=== PATIENT | male | born 1945 | race Caucasian/White ===

== ENCOUNTER 2018-01-27 17:02 | Outpatient (CLI) | payer MEDICARE, OTHER ==
--- NOTE | 2018-01-28 09:18 | MRI ---
MRI RIGHT SHOULDER WITHOUT CONTRAST: Date: 01/27/18 HISTORY: Shoulder pain. No loss of motion. COMPARISON: None. FINDINGS: Biceps Tendon: There is moderate extra-articular biceps tenosynovitis. There is severe interarticular tendinosis wit h interstitial tearing. Glenoid Labrum: There is anterior inferior labral tearing. There is also posterior inferior labral tearing and perios teal thickening. The superior labrum is also torn. Rotator Cuff: Full thickness, full width tear of the supraspinatus tendon retracted from the footplate 2.5 cm. Ther e is also extension of tear into the infraspinatus tendon which has a partial width full thickness te ar anterior 1.0 cm fibers. There is also extensive interstitial undersurface fraying. Bones: There is mild retroversion of the glenoid approximately 10 degrees with hypertrophy of the posterior labrum. There are large erosions of the posterolateral humeral head. Type I acromion. Soft Tissues: Moderate subacromial/subdeltoid bursal effusion. Moderate synovitis. There is loss of some of the nor mal subcoracoid fat pad with synovitis of the rotator interval. Muscles: Even with the full thickness supraspinatus tendon tear, there is no significant atrophy of the supras pinatus muscle. IMPRESSION: 1. Full thickness, full width supraspinatus tendon tear from the footplate retracted to the mid margarita ral head. Retracted fibers are moderately tendinotic. Rotator cable is medial to the mid humeral head approximately 8.0 mm. 2. Mild retroversion of the glenoid with nearly circumferential labral tearing. 3. Full thickness tear of the anterior 1.0 cm fibers of infraspinatus tendon with extensive undersur face and interstitial fraying. 4. Large erosions of the greater tuberosity which may be sequelae of prior anterior dislocation or r esorptive from tendinosis and subchondral extension of fluid from interstitial tearing of the infrasp inatus tendon. 5. No significant muscle atrophy. 6. A few near full thickness cartilage fissures with subchondral cysts of the glenoid. A majority of the cartilage of the humeral head appears to be intact. 7. Moderate synovitis and joint effusion. 8. Rotator interval synovitis. POS: [facility]
== END 2018-01-27 17:03 | disposition home or self-care (01) ==
LOC: MRI 17:02
PROVIDERS: ATTEND Orthopaedic Surgery
DX: M25.511 Pain in right shoulder (principal); M75.101 Unspecified rotator cuff tear or rupture of right shoulder, not specified as traumatic; S43.401A Unspecified sprain of right shoulder joint, initial encounter; M65.811 Other synovitis and tenosynovitis, right shoulder

== ENCOUNTER 2022-11-04 18:17 | Inpatient (IN) | payer MEDICARE, OTHER ==
[2022-11-04] MEDS ORDERED: Boostrix 0.5 ML (Tdap) VIAL (>/=7 yrs of age) ONE ×2 (19:14→19:20)
[2022-11-04] MEDS ORDERED: Lidocaine 1% PF 5 ML VIAL ONE (19:14)
[2022-11-04] MEDS ORDERED: Bacitracin 1 PK ONE (19:14)
[2022-11-04] MEDS ORDERED: TETANUS, DIPHTHERIA TOX,ADULT (TDVAX) 0.5 ML VIAL IM ONE (19:24)
[2022-11-04] MEDS ORDERED: Ondansetron PF 4 MG/2 ML Vial IVP PRN (19:24)
[2022-11-04] MEDS ORDERED: hydrALAZINE 20 MG/ML VIAL SLOW IVP PRN (19:28)
[2022-11-04] MEDS ORDERED: Morphine 4 MG/ML VIAL SLOW IVP PRN (19:55)
[2022-11-04 22:37] VITALS: BMI 25.7
[2022-11-04] MEDS: Sodium Chloride 0.9% 1,000 ML IV SCH (22:51)
[2022-11-04] MEDS: Acetaminophen 325 MG TAB PO SCH (22:52)
[2022-11-04] MEDS: Famotidine/PF 20 mg/2ml Vial SLOW IVP SCH (23:02)
[2022-11-05] MEDS: Sodium Chloride 0.9% 1,000 ML IV SCH ×2 (04:21→13:28)
[2022-11-05] MEDS: Acetaminophen 325 MG TAB PO SCH ×2 (04:21→11:37)
[2022-11-05 06:43] LABS: #Eosinphils 0.1 thou/uL (0.0-0.7); #Lymphocytes 1.2 thou/uL (1.20-3.40); #Monocytes 0.9 thou/uL (0.11-0.59); #Neutrophils 9.2 thou/uL (1.40-6.50); %Basophils 0.2 % (0.0-1.0); %Eosinophils 1.2 % (0.0-10.0); %Lymphocytes 10.6 % (21.0-51.0); %Monocytes 7.9 % (0.0-10.0); %Neutrophils 80.1 % (42.0-75.0); Hemoglobin 13.2 g/dL (14.0-18.0); Mean Corpuscular HGB CONC 34.5 g/dL (32.0-36.0); Mean Corpuscular Hemoglobin 32.2 pg (27.0-31.0); Mean Corpuscular Volume 93.4 fl (78.0-98.0); Mean Platelet Volume 7.7 fL (7.4-10.4); Platelet Count 241 10x3/uL (130-400); RBC Distribution Width 12.2 % (11.5-14.5); White Blood Cell (WBC) Count 11.5 10x3/uL (4.8-10.8)
[2022-11-05 06:59] LABS: Anion Gap 13 mmol/L (10-20); BUN (Urea Nitrogen) 16 mg/dL (8.4-25.7); Calc. Creatinine Clearance 71 mL/min (70-130); Calcium 8.9 mg/dL (7.8-10.44); Carbon Dioxide 21 mmol/L (23-31); Chloride 105 mmol/L (98-107); Estimated GFR 80; Glucose 169 mg/dL (83-110); Magnesium 1.9 mg/dL (1.6-2.6); Potassium 3.8 mmol/L (3.5-5.1); Sodium 135 mmol/L (136-145)
[2022-11-05 07:02] LABS: Phosphorus 2.6 mg/dL (2.3-4.7)
[2022-11-05] MEDS ORDERED: Atenolol 25 MG TAB PO SCH (09:00)
[2022-11-05] MEDS: Famotidine/PF 20 mg/2ml Vial SLOW IVP SCH (09:00)
[2022-11-05 11:49] VITALS: BP 129/67; TEMP 97.6
== END 2022-11-05 14:58 | disposition home or self-care (01) | DRG 87 ==
LOC: ERS 18:17 → SURG A 19:26
PROVIDERS: ADMIT Specialist; ATTEND Specialist
PROC: 0HQ0XZZ Repair Scalp Skin, External Approach (ICD-10-PCS; principal; 2022-11-04)
PROC: 3E0234Z Introduction of Serum, Toxoid and Vaccine into Muscle, Percutaneous Approach (ICD-10-PCS; 2022-11-04)
DX: S06.5X1A Traumatic subdural hemorrhage with loss of consciousness of 30 minutes or less, initial encounter (principal); S01.01XA Laceration without foreign body of scalp, initial encounter; E78.5 Hyperlipidemia, unspecified; R40.2413 Glasgow coma scale score 13-15, at hospital admission; W08.XXXA Fall from other furniture, initial encounter; Z79.82 Long term (current) use of aspirin; Z79.899 Other long term (current) drug therapy
CPT/HCPCS: 12001; 36415; 70450; 80048; 83735; 84100; 85025; 90471; 90715; G0390; J0360; J7050; S0028; U0003; U0005